=== PATIENT | female | born 1970 | race Caucasian/White ===

== ENCOUNTER 2024-03-31 03:45 | Day surgery (SDC) | payer OTHER ==
[2024-03-26 13:32] VITALS: BMI 25.9
[2024-03-31] MEDS ORDERED: FENTANYL CITRATE/PF 50 MCG/ML VIAL ONE (09:25)
[2024-03-31] MEDS ORDERED: PROPOFOL 20 ML ONE (09:26)
[2024-03-31] MEDS ORDERED: MIDAZOLAM HCL 2 MG/2 ML SINGLE DOSE VIAL ONE (09:26)
[2024-03-31] MEDS ORDERED: ACETAMINOPHEN 325 MG TABLET (FP) PO PRN (10:30)
[2024-03-31] MEDS ORDERED: IBUPROFEN 400 MG TABLET (FP) PO PRN (10:30)
[2024-03-31] MEDS ORDERED: PROMETHAZINE HCL 25 MG/1 ML VIAL IVPB PRN (10:31)
[2024-03-31] MEDS ORDERED: oxyCODONE HCL 5 MG TABLET PO PRN (10:31)
[2024-03-31] MEDS ORDERED: LACTATED RINGERS SOLUTION 1,000 ML IV SCH (10:45)
[2024-03-31 11:56] VITALS: RESP 18
[2024-03-31 12:29] VITALS: BP 135/76; PULSE 63; TEMP 98.2
== END 2024-03-31 12:10 | disposition home or self-care (01) ==
LOC: JASU-SURG 03:45
PROVIDERS: ATTEND Specialist
PROC: 0UDB8ZX Extraction of Endometrium, Via Natural or Artificial Opening Endoscopic, Diagnostic (ICD-10-PCS; principal; 2024-03-31 09:00)
DX: N95.0 Postmenopausal bleeding (principal); N85.00 Endometrial hyperplasia, unspecified; Z85.3 Personal history of malignant neoplasm of breast; Z90.13 Acquired absence of bilateral breasts and nipples
CPT/HCPCS: 88305-TC; 94760